=== PATIENT | male | born 1965 ===

== ENCOUNTER 2025-06-28 10:18 | Outpatient (CLI) | payer MEDICAID ==
[2025-06-28 11:30] LABS: Alanine Aminotransferase 22 U/L (7-40); Alkaline Phosphatase 50 U/L (46-116); Anion Gap 9 (5-15); BUN/Creatinine Ratio 26.1 (10.0-20.0); Carbon Dioxide 24 mmol/L (20-31); Glucose 104 mg/dL (74-106); Potassium 4.5 mmol/L (3.5-5.1); Sodium 143 mmol/L (136-145); Total Protein 6.2 g/dL (5.7-8.2)
[2025-06-28 11:31] LABS: Albumin 3.7 g/dL (3.2-4.8); Bilirubin, Total 0.8 mg/dL (0.2-1.0); Blood Urea Nitrogen 24 mg/dL (9-23); Calcium 8.6 mg/dL (8.7-10.4); Chloride 110 mmol/L (98-107); Creatine Kinase IFCC 122 U/L (46-171)
== END 2025-06-28 17:00 | disposition home or self-care (01) ==
LOC: LAB 10:18
PROVIDERS: ATTEND Internal Medicine
DX: I11.0 Hypertensive heart disease with heart failure (principal); I50.9 Heart failure, unspecified; E78.2 Mixed hyperlipidemia; N52.9 Male erectile dysfunction, unspecified; R35.1 Nocturia
CPT/HCPCS: 36415; 80053; 82550; 84153; 84403

== ENCOUNTER 2025-09-06 09:14 | Outpatient (CLI) | payer MEDICAID ==
[~2025-09-06] VITALS: Ht 177.8 cm; Wt 113.4 kg
[2025-09-06] MEDS: REGADENOSON 0.4 MG/5 ML SYRG IV ONE ×2 (12:22→12:25)
--- NOTE | 2025-09-07 11:50 | DVHSR ---
APPROVED REPORT Exam: Nuclear Stress Test BMI: 0 Stress Test Details Stress Test: Pharmacologic stress testing performed using 0.4 mg of regadenoson per 5 mL given IV over 10 seconds. HR Resting HR: 64 bpm Max Heart Rate (APMHR): 160.245751 bpm Max HR Achieved: 81 bpm Target HR (85% APMHR): 136.129385 bpm % of APMHR: 50.63 Recovery HR: 70 bpm BP Resting BP: 126/77 mmHg Recovery BP: 125/78 mmHg ECG Resting ECG: Sinus Rhythm Clinical Reason for Termination: Completed protocol Nurse Comments Received patient from Nuclear Medicine. Patient is A&O x4. For VS please refer back to stress test assessment documentation. Patient is connected to bleacher pulp. See Cardio- Neuro procedural notes for additional details. PIV flushres well. Reviewed POC and patient verbalizes understanding and consents to test. Lexiscan 0.4mg/5ml given. Stress test performed per protocol. dialysis biomed technician administered the Cardiolite, following Lexiscan injection. Patient tolerated well and vitals returned to baseline. Transferred back to Nuclear Medicine via wheelchair with tech in stable condition. Stress ECG Conclusion lvef 35% dilated LV inferior fixed defect no major ischemia noted NM EXAM: Myocardial Perfusion REST/STRESS Imaging Protocol: Rest Tc-99m/Stress Tc-99m 1 day Resting Data Rest SPECT myocardial perfusion imaging was performed in supine position 60 minutes following the intravenous injection of 10.5 mCi of Tc-99m Sestamibi. Time of rest injection: 10:45 Date: 09/06/2025 Time of rest imagin:45 Date: 09/06/2025 Administration Route: IV Administration Site: Left Arm Pharmacologic Stress Pharmacologic stress test was performed by injecting Regadenoson 0.4 mg IV push followed by the intravenous injection of 31.4 mCi of Tc-99m Sestamibi. Time of stress injection: 12:15 Date: 09/06/2025 Time of stress imagin:00 Date: 09/06/2025 Administration Route: IV Administration Site: Left Arm Gated Stress SPECT was performed 45 minutes after stress injection. The images were gated to evaluate regional wall motion and calculate left ventricular ejection fraction. Stress only was performed in the Supine position. Nuclear Conclusion Nuclear Findings: negative for ischemia lvef 35% dilated LV inferior fixed defect no major ischemia noted
== END 2025-09-06 17:00 | disposition home or self-care (01) ==
LOC: XYW 09:14
PROVIDERS: ATTEND Internal Medicine
DX: I50.22 Chronic systolic (congestive) heart failure (principal)
CPT/HCPCS: 78452; 93017; A9500; J2785